=== PATIENT | male | born 1975 | race Caucasian/White ===

== ENCOUNTER 2016-12-11 21:25 | Emergency (ER) | payer SELFPAY ==
[2016-12-11 21:35] VITALS: BP 146/83
--- NOTE | 2016-12-11 22:40 | RAD ---
Indication: Left knee injury. 4 views of left knee demonstrates no joint effusion. Degenerative changes of the patellofemoral joint with osteophyte formation is noted. Degenerative changes of the lateral compartment is also noted with osteophyte formation. IMPRESSION: No joint effusion although degenerative changes of lateral compartment as well as the patellofemoral joint is noted.
--- NOTE | 2016-12-11 22:40 | RAD ---
Indication: Left wrist injury 3 views of the wrist demonstrates no fracture. No other bone or joint abnormality is identified. IMPRESSION: NO FRACTURE OF THE WRIST IS NOTED.
--- NOTE | 2016-12-11 23:07 | UC ---
Minor Trauma HPI - HPI Summary HPI Summary: slipped at work injured left knee and left wrist hx left knee surguries and frequent steroid injections - History of Current Complaint Chief Complaint: UCLowerExtremity Stated Complaint: LT KNEE/LT WRIST INJ Time Seen by Provider: 12/11/16 22:05 Hx Obtained From: Patient Onset/Duration: Sudden Onset Onset Of Pain: Immediate Severity Initially: Moderate Severity Currently: Mild Pain Intensity: 4 Pain Scale Used: 0-10 Numeric Mechanism Of Injury: Fall From A Standing Position Aggravating Factor(s): Ambulation Alleviating Factor(s): Nothing Related History: Positive: Occupational Injury - Allergies/Home Medications Allergies/Adverse Reactions: Allergies Allergy/AdvReac Type Severity Reaction Status Date / Time Ibuprofen Allergy See Comment Verified 12/11/16 21:38 PMH/Surg Hx/FS Hx/Imm Hx Previously Healthy: Yes Endocrine History Of: Denies: Diabetes, Thyroid Disease Cardiovascular History Of: Denies: Cardiac Disorders, Hypertension Respiratory History Of: Denies: COPD, Asthma GI/ History Of: Reports: Kidney Stones - MANY YEARS AGO Denies: Ulcer - Surgical History Surgical History: Yes Surgery Procedure, Year, and Place: Gastric bypass 2014 - Family History Known Family History: Positive: Hypertension - Social History Alcohol Use: None Alcohol Amount: [place] Substance Use Type: None Smoking Status (MU): Never Smoked Tobacco Have You Smoked in the Last Year: No - Immunization History Most Recent Influenza Vaccination: NEVER Most Recent Tetanus Shot: 2014 Most Recent Pneumonia Vaccination: NEVER Review of Systems Constitutional: Negative Skin: Negative Eyes: Negative ENT: Negative Respiratory: Negative Cardiovascular: Negative Gastrointestinal: Negative Genitourinary: Negative Motor: Negative Neurovascular: Negative Musculoskeletal: Arthralgia Neurological: Negative Psychological: Negative All Other Systems Reviewed And Are Negative: Yes Physical Exam Triage Information Reviewed: Yes Appearance: Well-Appearing, No Pain Distress, Well-Nourished Vital Signs: Initial Vital Signs Temp 98.1 F 12/11/16 21:33 Pulse 82 12/11/16 21:33 Resp 12 12/11/16 21:33 BP 146/83 12/11/16 21:33 Pulse Ox 98 12/11/16 21:33 Vital Signs Reviewed: Yes Eyes: Positive: Conjunctiva Clear ENT: Negative: Hearing grossly normal, Nasal congestion, Nasal drainage, Muffled /hoarse voice Neck: Positive: Nontender, No Lymphadenopathy Respiratory: Positive: Lungs clear Cardiovascular: Positive: RRR, No Murmur Musculoskeletal: Positive: Other: - left knee- surgical scars/from/no effusion left wrist-from/slight tenderness distal radius Neurological Exam: Normal Neurological: Positive: Alert Psychological Exam: Normal Skin Exam: Normal Minor Trauma Course/Dx - Differential Dx/Diagnosis Provider Diagnoses: left knee sprain/DJD. left wrist sprain Discharge - Discharge Plan Condition: Stable Disposition: HOME Patient Education Materials: Wrist Sprain (ED), Arthritis (ED) Referrals: Curtis Matias MD [Primary Care Provider] - Additional Instructions: see your orthopedist call for first available appt
== END 2016-12-11 23:08 | disposition home or self-care (01) ==
LOC: UCEAST 21:25
DX: S83.92XA Sprain of unspecified site of left knee, initial encounter (principal); S63.502A Unspecified sprain of left wrist, initial encounter; M17.12 Unilateral primary osteoarthritis, left knee; W01.0XXA Fall on same level from slipping, tripping and stumbling without subsequent striking against object, initial encounter; Y92.9 Unspecified place or not applicable; Z98.84 Bariatric surgery status; Z88.0 Allergy status to penicillin
CPT/HCPCS: 99212; G0463